=== PATIENT | male | born 1965 | race Caucasian/White ===

== ENCOUNTER 2017-08-10 22:19 | Inpatient (IN) | payer MEDICARE, MEDICAID ==
[~2017-08-10] VITALS: Ht 177.8 cm; Wt 76.7 kg
[~2017-08-10 22:19] MED LIST: ALBUTEROL2.5 MG/3 M INH; ATORVASTATIN CA20 MG ORAL; FISH OIL500 M2 PO; NICOTINE GUM4 MG PO; RISPERIDONE4 MG ORAL; SPIRIVA18 MCG INH; SYMBICORT 16010.2 G1 IH; TRAZODONE HCL150 MG ORAL
[2017-08-10 23:21] LABS: BASOPHILS % (AUTO) 0.5 % (0.0-2.0); EOSINOPHILS % (AUTO) 2.2 % (0.0-3.0); LYMPHOCYTES % (AUTO) 15.4 % (20.0-45.0); MEAN CORPUSCULAR HGB CONC 34.4 G/DL (32.0-36.0); MEAN CORPUSCULAR VOLUME 93 FL (80-99); PLATELET COUNT 184 K/UL (150-450); RED CELL DISTRIBUTION WIDTH 12.1 % (11.6-14.8); WHITE BLOOD COUNT 13.7 K/UL (4.8-10.8)
[2017-08-10 23:33] LABS: ANION GAP 11 mmol/L (5-15); CARBON DIOXIDE 25 MMOL/L (21-32); CHLORIDE 104 MMOL/L (98-107); CREATININE 1.2 MG/DL (0.55-1.30); GLOMERULAR FILTRATION RATE > 60 mL/min (>60); POTASSIUM 3.1 MMOL/L (3.5-5.1); SODIUM 140 MMOL/L (136-145)
[2017-08-10 23:50] LABS: CKMB 4.9 NG/ML (0.0-3.6)
[2017-08-11] VITALS (7 sets, daily range): BP systolic 110–138; BP diastolic 61–88
[2017-08-11] MEDS ORDERED: Miralax 17gm pkt ORAL PRN (00:15)
[2017-08-11] MEDS ORDERED: Morphine Sulfate 4mg/ml Inj IVP PRN (00:15)
[2017-08-11] MEDS ORDERED: TraZODone 100mg tab ORAL PRN (00:15)
[2017-08-11] MEDS ORDERED: Albuterol/Ipratropium 3ml neb HHN PRN (00:15)
--- NOTE | 2017-08-11 00:21 | Emergency Room Report ---
History of Present Illness General Chief Complaint: Seizure Source: Patient, EMS Present Illness HPI Patient presents from a boarding care facility Patient is a poor historian This does limit the history of present illness There is note on the patient's chart regarding previous tuberculosis however he denies this Patient was brought in for report of seizure activity However he also denies having seizure activity At this time denies any chest pain denies any shortness of breath however the patient was found to be tachypneic and appears clinically short of breath Allergies: Coded Allergies: No Known Allergies (Unverified , 12/28/14) Patient History Past Medical History: see triage record Pertinent Family History: none Reviewed Nursing Documentation: PMH: Agreed, PSxH: Agreed Nursing Documentation-PMH Hx COPD: Yes - EMPHYSEMA,HX OF TB History Of Psychiatric Problem: Yes Review of Systems All Other Systems: limited - Other than the ones mentioned in the history of present illness all others are reviewed however they do stay limited due to the patient's mental status Physical Exam Vital Signs Date Time Temp Pulse Resp B/P (MAP) Pulse Ox O2 Delivery O2 Flow Rate FiO2 08/10/17 22:16 97.2 104 18 157/90 98 Room Air Sp02 EP Interpretation: reviewed, normal General Appearance: mild distress - appear short of breath Head: normocephalic, atraumatic Eyes: bilateral eye PERRL, bilateral eye EOMI ENT: hearing grossly normal, normal pharynx, TMs + canals normal, uvula midline Neck: full range of motion, supple, no meningismus, no bony tend Respiratory: no respiratory distress, no retraction, no accessory muscle use, crackles - bilaterally Cardiovascular #1: normal peripheral pulses, regular rate, rhythm, no edema, no gallop, no JVD, no murmur Gastrointestinal: normal bowel sounds, non tender, soft, no mass, no organomegaly, non-distended, no guarding, no hernia, no pulsatile mass, no rebound Genitourinary: no CVA tenderness Musculoskeletal: normal inspection Neurologic: responsive, restaurant 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 manager 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-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 nml as tested, motor strength/tone normal, sensory intact Psychiatric: mood/affect normal Skin: normal color, no rash, warm/dry, palpation normal Lymphatic: normal inspection, no adenopathy Medical Decision Making Diagnostic Impression: Primary Impression: Pneumonia Additional Impression: Hypoxia ER Course Patient is a fairly complex patient with multiple differential to consideration including but not limited to cardiac cardiopulmonary and vascular emergencies Patient's CT head was negative for acute disease X-ray shows bilateral lower lobe increased markings concerning for infiltrate White blood for count was also elevated Patient's initial pulse ox was reading at 98% however On the continuous monitoring at bedside patient saturates at 92-91% on a regular basis and required oxygen Patient provided antibiotics and admitted for further care Labs Test 08/10/17 22:45 08/10/17 23:30 White Blood Count 13.7 K/UL (4.8-10.8) Red Blood Count 4.70 M/UL (4.70-6.10) Hemoglobin 15.0 G/DL (14.2-18.0) Hematocrit 43.7 % (42.0-52.0) Mean Corpuscular Volume 93 FL (80-99) Mean Corpuscular Hemoglobin 32.0 PG (27.0-31.0) Mean Corpuscular Hemoglobin Concent 34.4 G/DL (32.0-36.0) Red Cell Distribution Width 12.1 % (11.6-14.8) Platelet Count 184 K/UL (150-450) Mean Platelet Volume 8.0 FL (6.5-10.1) Neutrophils (%) (Auto) 77.0 % (45.0-75.0) Lymphocytes (%) (Auto) 15.4 % (20.0-45.0) Monocytes (%) (Auto) 5.0 % (1.0-10.0) Eosinophils (%) (Auto) 2.2 % (0.0-3.0) Basophils (%) (Auto) 0.5 % (0.0-2.0) Sodium Level 140 MMOL/L (136-145) Potassium Level 3.1 MMOL/L (3.5-5.1) Chloride Level 104 MMOL/L (98-107) Carbon Dioxide Level 25 MMOL/L (21-32) Anion Gap 11 mmol/L (5-15) Blood Urea Nitrogen 15 mg/dL (7-18) Creatinine 1.2 MG/DL (0.55-1.30) Estimat Glomerular Filtration Rate > 60 mL/min (>60) Glucose Level 112 MG/DL (74-106) Calcium Level 9.0 MG/DL (8.5-10.1) Total Creatine Kinase 177 U/L (26-308) Creatine Kinase MB 4.9 NG/ML (0.0-3.6) Creatine Kinase MB Relative Index 2.7 Troponin I 0.000 ng/mL (0.000-0.056) Pro-B-Type Natriuretic Peptide 136 pg/mL (0-125) Lipase 136 U/L (73-393) Urine Opiates Screen Negative (NEGATIVE) Urine Barbiturates Screen Negative (NEGATIVE) Phencyclidine (PCP) Screen Negative (NEGATIVE) Urine Amphetamines Screen Negative (NEGATIVE) Urine Benzodiazepines Screen Negative (NEGATIVE) Urine Cocaine Screen Negative (NEGATIVE) Urine Marijuana (THC) Screen Negative (NEGATIVE) Lactic Acid Level 1.90 mmol/L (0.66-2.22) Rhythm Strip Diag. Results EP Interpretation: yes Rate: 78 Rhythm: NSR, no PVC's, no ectopy Chest X-Ray Diagnostic Results Chest X-Ray Diagnostic Results : Chest X-Ray Ordered: Yes # of Views/Limited/Complete: 1 View Indication: Shortness of Breath EP Interpretation: Yes Interpretation: no effusion, no pneumothorax, other - Bilateral lower lobe atelectasis/infiltrate Impression: Other - Bilateral lower lobe infiltrate Electronically Signed by: Trent Montez, DO CT/MRI/US Diagnostic Results CT/MRI/US Diagnostic Results : Impression CT head no acute disease Last Vital Signs Date Time Temp Pulse Resp B/P (MAP) Pulse Ox O2 Delivery O2 Flow Rate FiO2 08/10/17 22:56 104 18 Room Air 08/10/17 22:16 97.2 157/90 98 Status: improved Disposition: ADMITTED INPATIENT Condition: Serious Referrals: NOT CHOSEN PATRIA/,REFERRING (PCP) TRENT MONTEZ D.O. Aug 11, 2017 00:21
[2017-08-11] MEDS ORDERED: TRAZODONE HCL100 MG ORAL (01:17)
[2017-08-11] MEDS ORDERED: VIAGRA50 MG ORAL (01:17)
[2017-08-11] MEDS ORDERED: GUAIFENESIN PO (01:17)
[2017-08-11] MEDS ORDERED: RISPERIDONE4 MG ORAL (01:17)
[2017-08-11] MEDS ORDERED: CORLANOR5 MG PO (01:17)
[2017-08-11] MEDS ORDERED: BUPROPION HCL150 M3 ORAL (01:22)
[2017-08-11] MEDS ORDERED: SPIRIVA18 MCG INH (01:23)
[2017-08-11] MEDS ORDERED: Vancomycin 1.5 GM/D5W 250ML IVPB SCH (05:00)
[2017-08-11] MEDS ORDERED: VANCOMYCIN IVPB SCH (06:00)
[2017-08-11] MEDS ORDERED: [UNRECOGNIZED DRUG - OTHER] IVPB SCH (06:00)
[2017-08-11] MEDS ORDERED: Cefepime 2gm in D5W 55ml IVPB SCH (09:00)
[2017-08-11] MEDS ORDERED: Cefepime HCl 2 GM in D5W 110 ML IV SCH (09:00)
[2017-08-11] MEDS: Heparin 5000 units/ml inj SUBQ SCH ×2 (09:25→22:12)
--- NOTE | 2017-08-11 10:54 | Consultation ---
History of Present Illness General Date patient seen: Aug 11, 2017 Time patient seen: 11:05 Chief Complaint: Seizure Present Illness HPI 52 y/o M with hx of emphysema, ?hx of prior TB (per chart, patient denies), [facility]ac disorder[facility]11 because of seizure activity. Poor historian Denies CP, SOB. In ED found to be tachypneic and SOB. afebrile. mild leukocytosis to 13. CXR and Head CT pending. Started on IV Vanco and Cefepime Patient doesn recall event but refers days prior was doing fine. Stacy f/c, cough, URI symptoms, urinary symptoms, abd pain, n/v/d, SIMMS, visual changes, numbness/weakness, rash. Allergies: Coded Allergies: No Known Allergies (Unverified , 12/28/14) Medication History Scheduled Atorvastatin Calcium* (Atorvastatin Calcium*), 20 MG ORAL BEDTIME, (Reported) Budesonide/Formoterol Fumarate (Symbicort 160-4.5 Mcg Inhaler), 2 PUFF IH BID, ( Reported) Bupropion Hcl* (Bupropion Hcl Sr*), 150 MG ORAL EVERY 12 HOURS, (Reported) Ivabradine HCl (Corlanor), 5 MG PO DAILY, (Reported) [place]-3 Fatty Acids (Fish Oil), 1,000 MG PO BID, (Reported) Risperidone (Risperidone), 8 MG ORAL QHS, (Reported) Risperidone (Risperidone), 4 MG ORAL BEDTIME, (Reported) Sildenafil Citrate (Viagra), 50 MG ORAL DAILY, (Reported) Tiotropium [place]* (Spiriva*), 1 PUFF INH DAILY, (Reported) Tiotropium [place]* (Spiriva*), 2 PUFF INH DAILY, (Reported) Trazodone Hcl* (Desyrel*), 100 MG ORAL BEDTIME, (Reported) [Guaifenesin], 400 MG PO THREE TIMES A DAY, (Reported) Scheduled PRN Albuterol Sulfate* (Albuterol Sulfate Hhn*), 90 MCG INH Q4H PRN for Shortness of Breath, (Reported) Nicotine Polacrilex (Nicotine Gum), 4 MG PO Q4HR PRN for Per rx protocol, ( Reported) Trazodone* (Trazodone*), 50 MG ORAL BEDTIME PRN for i, (Reported) Patient History Healthcare decision maker Resuscitation status Full Code Advanced Directive on File Patient History Narrative Pmhx as above: SHx lives in boarding care facility Fhx non contributory Review of Systems All Other Systems: negative except mentioned in HPI Physical Exam Physical Exam Narrative General Appearance: mild distress - appear short of breath HEENT: normocephalic, atraumatic, bilateral eye PERRL, bilateral eye EOMI Neck: full range of motion, supple, no meningismus, no bony tend Respiratory: no respiratory distress, no retraction, no accessory muscle use, crackles - bilaterally Cardiovascular : normal peripheral pulses, regular rate, rhythm, no edema, no gallop, no JVD, no murmur Gastrointestinal: normal bowel sounds, non tender, soft, no mass, no organomegaly, non-distended, no guarding, no hernia, no pulsatile mass, no rebound Genitourinary: no CVA tenderness Musculoskeletal: normal inspection Neurologic: responsive, technology intern III-XII nml as tested, motor strength/tone normal, sensory intact Psychiatric: mood/affect normal Skin: normal color, no rash, warm/dry, palpation normal Last 24 Hour Vital Signs Date Time Temp Pulse Resp B/P (MAP) Pulse Ox O2 Delivery O2 Flow Rate FiO2 08/11/17 08:17 98.1 86 20 136/79 93 08/11/17 08:15 78 18 89 Room Air 2.0 28 08/11/17 08:00 79 08/11/17 07:20 21 08/11/17 07:12 81 18 Room Air 08/11/17 07:11 81 18 87 Room Air 2.0 28 08/11/17 04:00 97.7 75 20 133/83 93 Room Air 08/11/17 04:00 71 08/11/17 03:00 97.7 71 20 123/73 97 Room Air 21 08/11/17 02:07 137/88 08/11/17 01:10 97.2 74 18 138/88 99 Room Air 08/10/17 22:56 104 18 Room Air 08/10/17 22:16 97.2 104 18 157/90 98 Room Air Intake and Output 08/11/17 08/12/17 19:00 07:00 Intake Total 1035 ml Balance 1035 ml Intake Oral 480 ml IV Total 555 ml Laboratory Tests Test 08/10/17 22:45 08/10/17 23:30 White Blood Count 13.7 K/UL (4.8-10.8) H Red Blood Count 4.70 M/UL (4.70-6.10) Hemoglobin 15.0 G/DL (14.2-18.0) Hematocrit 43.7 % (42.0-52.0) Mean Corpuscular Volume 93 FL (80-99) Mean Corpuscular Hemoglobin 32.0 PG (27.0-31.0) H Mean Corpuscular Hemoglobin Concent 34.4 G/DL (32.0-36.0) Red Cell Distribution Width 12.1 % (11.6-14.8) Platelet Count 184 K/UL (150-450) Mean Platelet Volume 8.0 FL (6.5-10.1) Neutrophils (%) (Auto) 77.0 % (45.0-75.0) H Lymphocytes (%) (Auto) 15.4 % (20.0-45.0) L Monocytes (%) (Auto) 5.0 % (1.0-10.0) Eosinophils (%) (Auto) 2.2 % (0.0-3.0) Basophils (%) (Auto) 0.5 % (0.0-2.0) Sodium Level 140 MMOL/L (136-145) Potassium Level 3.1 MMOL/L (3.5-5.1) L Chloride Level 104 MMOL/L (98-107) Carbon Dioxide Level 25 MMOL/L (21-32) Anion Gap 11 mmol/L (5-15) Blood Urea Nitrogen 15 mg/dL (7-18) Creatinine 1.2 MG/DL (0.55-1.30) Estimat Glomerular Filtration Rate > 60 mL/min (>60) Glucose Level 112 MG/DL (74-106) H Calcium Level 9.0 MG/DL (8.5-10.1) Total Creatine Kinase 177 U/L (26-308) Creatine Kinase MB 4.9 NG/ML (0.0-3.6) H Creatine Kinase MB Relative Index 2.7 Troponin I 0.000 ng/mL (0.000-0.056) Pro-B-Type Natriuretic Peptide 136 pg/mL (0-125) H Lipase 136 U/L (73-393) Urine Opiates Screen Negative (NEGATIVE) Urine Barbiturates Screen Negative (NEGATIVE) Phencyclidine (PCP) Screen Negative (NEGATIVE) Urine Amphetamines Screen Negative (NEGATIVE) Urine Benzodiazepines Screen Negative (NEGATIVE) Urine Cocaine Screen Negative (NEGATIVE) Urine Marijuana (THC) Screen Negative (NEGATIVE) Lactic Acid Level 1.90 mmol/L (0.66-2.22) Height (Feet): 5 Height (Inches): 10.00 Weight (Pounds): 169 Medications Current Medications Medications (Trade) Dose Ordered Sig/Otilio Route PRN Reason Start Time Stop Time Status Last Admin Dose Admin Acetaminophen (Tylenol) 650 mg Q4H PRN ORAL FEVER 08/11/17 00:15 09/10/17 00:14 Albuterol/ Ipratropium (Albuterol/ Ipratropium) 3 ml Q4H PRN HHN Shortness of Breath 08/11/17 00:15 08/16/17 00:14 08/11/17 07:11 Cefepime HCl 2 gm/ Dextrose 55 ml @ 110 mls/hr EVERY 12 HOURS IVPB 08/11/17 09:00 08/18/17 08:59 08/11/17 09:24 Dextrose (Dextrose 50%) STAT PRN IV Hypoglycemia 08/11/17 00:15 09/10/17 00:14 Heparin Sodium (Porcine) (Heparin 5000 units/ml) 5,000 units EVERY 12 HOURS SUBQ 08/11/17 09:00 09/10/17 08:59 08/11/17 09:25 Morphine Sulfate (Morphine Sulfate) 2 mg Q4H PRN IVP Severe Pain (Pain Scale 7-10) 08/11/17 00:15 08/18/17 00:14 Ondansetron HCl (Zofran) 4 mg Q6H PRN IVP Nausea & Vomiting 08/11/17 00:15 09/10/17 00:14 Polyethylene Glycol (Miralax) 17 gm DAILYPRN PRN ORAL Constipation 08/11/17 00:15 09/10/17 00:14 Risperidone (RisperDAL) 2 mg BEDTIME ORAL 08/11/17 21:00 09/10/17 20:59 Trazodone HCl (Desyrel) 50 mg BEDTIME PRN ORAL INSOMNIA 08/11/17 00:15 09/10/17 00:14 Vancomycin HCl (Vanco rx to dose) 1 ea DAILY PRN MISC . 08/11/17 06:30 09/10/17 06:29 Vancomycin HCl/ Dextrose 500 ml @ 250 mls/hr Q12H IVPB 08/11/17 06:00 08/16/17 04:59 08/11/17 06:30 Assessment/Plan Assessment/Plan Abx: IV Vanco 08/11- Cefepime 08/11- Levaquin x1 08/11 Assesment: Seziure activity- ?etiology- afebrile, mental status back to normal, no SIMMS- low suspicion for an underlying infectious process -head CT p (per ED report no acute findings) Leukocytosis, mild- suspect reactive. No signs or symptoms of infection -afebrile -CXR p (per ED report Bilateral lower lobe atelectasis/infiltrate) emphysema ?hx of prior TB (per chart, patient denies) psychiatric disorder [facility] resident Plan: -D/C IV Vancomycin and Cefepime and monitor off abx -f/u Head CT, CXR -Consider Neuro eval -check HIV ag/ab, RPR -f/u cx -Monitor CBC/BMP ,temperatures Thank you for this consultation. Will continue to follow along with you. Discussed with MARIELLE. Avis Holguin M.D. Aug 11, 2017 10:54
--- NOTE | 2017-08-11 12:07 | History and Physical ---
History of Present Illness General Date patient seen: Aug 11, 2017 Reason for Hospitalization: Seizure Present Illness HPI 52 year old with hx of seizures, psychiatric disorder, depression, brought in by paramedics for ALOC, possibly seizures. Pt doesn't remember anything and is a poor historian as well. He looks comfortable and stating that he is ready to go home. Allergies: Coded Allergies: No Known Allergies (Unverified , 12/28/14) Medication History Scheduled Atorvastatin Calcium* (Atorvastatin Calcium*), 20 MG ORAL BEDTIME, (Reported) Budesonide/Formoterol Fumarate (Symbicort 160-4.5 Mcg Inhaler), 2 PUFF IH BID, ( Reported) Bupropion Hcl* (Bupropion Hcl Sr*), 150 MG ORAL EVERY 12 HOURS, (Reported) Ivabradine HCl (Corlanor), 5 MG PO DAILY, (Reported) [place]-3 Fatty Acids (Fish Oil), 1,000 MG PO BID, (Reported) Risperidone (Risperidone), 8 MG ORAL QHS, (Reported) Risperidone (Risperidone), 4 MG ORAL BEDTIME, (Reported) Sildenafil Citrate (Viagra), 50 MG ORAL DAILY, (Reported) Tiotropium [place]* (Spiriva*), 1 PUFF INH DAILY, (Reported) Tiotropium [place]* (Spiriva*), 2 PUFF INH DAILY, (Reported) Trazodone Hcl* (Desyrel*), 100 MG ORAL BEDTIME, (Reported) [Guaifenesin], 400 MG PO THREE TIMES A DAY, (Reported) Scheduled PRN Albuterol Sulfate* (Albuterol Sulfate Hhn*), 90 MCG INH Q4H PRN for Shortness of Breath, (Reported) Nicotine Polacrilex (Nicotine Gum), 4 MG PO Q4HR PRN for Per rx protocol, ( Reported) Trazodone* (Trazodone*), 50 MG ORAL BEDTIME PRN for i, (Reported) Patient History Healthcare decision maker Resuscitation status Full Code Advanced Directive on File Past Medical/Surgical History Past Medical/Surgical History: (1) Seizure disorder (2) Psychosis (3) Depression Review of Systems Constitutional: Reports: no symptoms Eye: Reports: no symptoms Respiratory: Reports: no symptoms Physical Exam General Appearance: WD/WN, lethargic Lines, tubes and drains: peripheral, central line HEENT: normocephalic, atraumatic Neck: non-tender, normal alignment Respiratory/Chest: chest wall non-tender, lungs clear Breasts: no masses Cardiovascular/Chest: normal peripheral pulses Abdomen: normal bowel sounds Genitourinary/Rectal: normal genital exam Last 24 Hour Vital Signs Date Time Temp Pulse Resp B/P (MAP) Pulse Ox O2 Delivery O2 Flow Rate FiO2 08/11/17 11:24 97.9 78 20 110/61 96 08/11/17 08:17 98.1 86 20 136/79 93 08/11/17 08:15 78 18 89 Room Air 2.0 28 08/11/17 08:00 79 08/11/17 07:20 21 08/11/17 07:12 81 18 Room Air 08/11/17 07:11 81 18 87 Room Air 2.0 28 08/11/17 04:00 97.7 75 20 133/83 93 Room Air 08/11/17 04:00 71 08/11/17 03:00 97.7 71 20 123/73 97 Room Air 21 08/11/17 02:07 137/88 08/11/17 01:10 97.2 74 18 138/88 99 Room Air 08/10/17 22:56 104 18 Room Air 08/10/17 22:16 97.2 104 18 157/90 98 Room Air Intake and Output 08/11/17 08/12/17 19:00 07:00 Intake Total 1035 ml Balance 1035 ml Intake Oral 480 ml IV Total 555 ml # Voids 2 Laboratory Tests Test 08/10/17 22:45 08/10/17 23:30 White Blood Count 13.7 K/UL (4.8-10.8) H Red Blood Count 4.70 M/UL (4.70-6.10) Hemoglobin 15.0 G/DL (14.2-18.0) Hematocrit 43.7 % (42.0-52.0) Mean Corpuscular Volume 93 FL (80-99) Mean Corpuscular Hemoglobin 32.0 PG (27.0-31.0) H Mean Corpuscular Hemoglobin Concent 34.4 G/DL (32.0-36.0) Red Cell Distribution Width 12.1 % (11.6-14.8) Platelet Count 184 K/UL (150-450) Mean Platelet Volume 8.0 FL (6.5-10.1) Neutrophils (%) (Auto) 77.0 % (45.0-75.0) H Lymphocytes (%) (Auto) 15.4 % (20.0-45.0) L Monocytes (%) (Auto) 5.0 % (1.0-10.0) Eosinophils (%) (Auto) 2.2 % (0.0-3.0) Basophils (%) (Auto) 0.5 % (0.0-2.0) Sodium Level 140 MMOL/L (136-145) Potassium Level 3.1 MMOL/L (3.5-5.1) L Chloride Level 104 MMOL/L (98-107) Carbon Dioxide Level 25 MMOL/L (21-32) Anion Gap 11 mmol/L (5-15) Blood Urea Nitrogen 15 mg/dL (7-18) Creatinine 1.2 MG/DL (0.55-1.30) Estimat Glomerular Filtration Rate > 60 mL/min (>60) Glucose Level 112 MG/DL (74-106) H Calcium Level 9.0 MG/DL (8.5-10.1) Total Creatine Kinase 177 U/L (26-308) Creatine Kinase MB 4.9 NG/ML (0.0-3.6) H Creatine Kinase MB Relative Index 2.7 Troponin I 0.000 ng/mL (0.000-0.056) Pro-B-Type Natriuretic Peptide 136 pg/mL (0-125) H Lipase 136 U/L (73-393) Urine Opiates Screen Negative (NEGATIVE) Urine Barbiturates Screen Negative (NEGATIVE) Phencyclidine (PCP) Screen Negative (NEGATIVE) Urine Amphetamines Screen Negative (NEGATIVE) Urine Benzodiazepines Screen Negative (NEGATIVE) Urine Cocaine Screen Negative (NEGATIVE) Urine Marijuana (THC) Screen Negative (NEGATIVE) Lactic Acid Level 1.90 mmol/L (0.66-2.22) Height (Feet): 5 Height (Inches): 10.00 Weight (Pounds): 169 Medications Current Medications Medications (Trade) Dose Ordered Sig/Otilio Route PRN Reason Start Time Stop Time Status Last Admin Dose Admin Acetaminophen (Tylenol) 650 mg Q4H PRN ORAL FEVER 08/11/17 00:15 09/10/17 00:14 Albuterol/ Ipratropium (Albuterol/ Ipratropium) 3 ml Q4H PRN HHN Shortness of Breath 08/11/17 00:15 08/16/17 00:14 08/11/17 07:11 Cefepime HCl 2 gm/ Dextrose 55 ml @ 110 mls/hr EVERY 12 HOURS IVPB 08/11/17 09:00 08/18/17 08:59 08/11/17 09:24 Dextrose (Dextrose 50%) STAT PRN IV Hypoglycemia 08/11/17 00:15 09/10/17 00:14 Heparin Sodium (Porcine) (Heparin 5000 units/ml) 5,000 units EVERY 12 HOURS SUBQ 08/11/17 09:00 09/10/17 08:59 08/11/17 09:25 Morphine Sulfate (Morphine Sulfate) 2 mg Q4H PRN IVP Severe Pain (Pain Scale 7-10) 08/11/17 00:15 08/18/17 00:14 Ondansetron HCl (Zofran) 4 mg Q6H PRN IVP Nausea & Vomiting 08/11/17 00:15 09/10/17 00:14 Polyethylene Glycol (Miralax) 17 gm DAILYPRN PRN ORAL Constipation 08/11/17 00:15 09/10/17 00:14 Risperidone (RisperDAL) 2 mg BEDTIME ORAL 08/11/17 21:00 09/10/17 20:59 Trazodone HCl (Desyrel) 50 mg BEDTIME PRN ORAL INSOMNIA 08/11/17 00:15 09/10/17 00:14 Vancomycin HCl (Vanco rx to dose) 1 ea DAILY PRN MISC . 08/11/17 06:30 09/10/17 06:29 Vancomycin HCl/ Dextrose 500 ml @ 250 mls/hr Q12H IVPB 08/11/17 06:00 08/16/17 04:59 08/11/17 06:30 Assessment/Plan Problem List: (1) Acute encephalopathy ICD Codes: G93.40 - Encephalopathy, unspecified SNOMED: 1480925 (2) Seizure disorder ICD Codes: G40.909 - Epilepsy, unspecified, not intractable, without status epilepticus SNOMED: 518000516 (3) Leukocytosis ICD Codes: D72.829 - Elevated white blood cell count, unspecified SNOMED: 709652004, 620424961 (4) Psychosis ICD Codes: F29 - Unspecified psychosis not due to a substance or known physiological condition SNOMED: 09014070 (5) Depression ICD Codes: F32.9 - Major depressive disorder, single episode, unspecified SNOMED: 05240397 Assessment/Plan telemetry monitoring echo neuro evaluation check wbc ID evaluation for leukocytosis. CARRIE KAN Aug 11, 2017 12:07
--- NOTE | 2017-08-11 14:16 | Neurology Progress Note ---
Objective Physical Exam Last Vital Signs Date Time Temp Pulse Resp B/P (MAP) Pulse Ox O2 Delivery O2 Flow Rate FiO2 08/11/17 12:00 75 08/11/17 11:24 97.9 20 110/61 96 08/11/17 08:15 Room Air 2.0 28 Laboratory Tests Test 08/10/17 22:45 08/10/17 23:30 White Blood Count 13.7 K/UL (4.8-10.8) H Red Blood Count 4.70 M/UL (4.70-6.10) Hemoglobin 15.0 G/DL (14.2-18.0) Hematocrit 43.7 % (42.0-52.0) Mean Corpuscular Volume 93 FL (80-99) Mean Corpuscular Hemoglobin 32.0 PG (27.0-31.0) H Mean Corpuscular Hemoglobin Concent 34.4 G/DL (32.0-36.0) Red Cell Distribution Width 12.1 % (11.6-14.8) Platelet Count 184 K/UL (150-450) Mean Platelet Volume 8.0 FL (6.5-10.1) Neutrophils (%) (Auto) 77.0 % (45.0-75.0) H Lymphocytes (%) (Auto) 15.4 % (20.0-45.0) L Monocytes (%) (Auto) 5.0 % (1.0-10.0) Eosinophils (%) (Auto) 2.2 % (0.0-3.0) Basophils (%) (Auto) 0.5 % (0.0-2.0) Sodium Level 140 MMOL/L (136-145) Potassium Level 3.1 MMOL/L (3.5-5.1) L Chloride Level 104 MMOL/L (98-107) Carbon Dioxide Level 25 MMOL/L (21-32) Anion Gap 11 mmol/L (5-15) Blood Urea Nitrogen 15 mg/dL (7-18) Creatinine 1.2 MG/DL (0.55-1.30) Estimat Glomerular Filtration Rate > 60 mL/min (>60) Glucose Level 112 MG/DL (74-106) H Calcium Level 9.0 MG/DL (8.5-10.1) Total Creatine Kinase 177 U/L (26-308) Creatine Kinase MB 4.9 NG/ML (0.0-3.6) H Creatine Kinase MB Relative Index 2.7 Troponin I 0.000 ng/mL (0.000-0.056) Pro-B-Type Natriuretic Peptide 136 pg/mL (0-125) H Lipase 136 U/L (73-393) Urine Opiates Screen Negative (NEGATIVE) Urine Barbiturates Screen Negative (NEGATIVE) Phencyclidine (PCP) Screen Negative (NEGATIVE) Urine Amphetamines Screen Negative (NEGATIVE) Urine Benzodiazepines Screen Negative (NEGATIVE) Urine Cocaine Screen Negative (NEGATIVE) Urine Marijuana (THC) Screen Negative (NEGATIVE) Lactic Acid Level 1.90 mmol/L (0.66-2.22) Impression/Recommendations Recommendations # [id number] OLLIE AMAYA Aug 11, 2017 14:16
[2017-08-11] MEDS ORDERED: D5W 275ml ONE (15:34)
[2017-08-11] MEDS ORDERED: Tubing IV Secondary IV ONE (15:34)
--- NOTE | 2017-08-11 17:16 | Consultation ---
DATE OF CONSULTATION: 08/11/2017 NEUROLOGICAL CONSULTATION CONSULTING PHYSICIAN: Curtis Troncoso M.D. REQUESTING PHYSICIAN: Federico Zamorano M.D. HISTORY OF PRESENT ILLNESS: The patient is a 52-year-old gentleman resident of [facility] now seen in neurological consultation after he had what seems witnessed "seizure event." The patient informs me that he never had seizures in the past and denies having blackouts. He remember yesterday getting his dress warm, went to the bed to sleep, and then he was taken to this hospital. He suspects that if seizure occurred while he was in bed. On arrival to this hospital, he was tachypneic with shortness of breath. His blood pressure was 157/90, temperature 97.2, and heart rate of 102. He described as having mild distress. His initial workup included CT scan of the brain, which reported as negative. He had a chest x-ray revealed bilateral lower lobe infiltrates and EKG with normal sinus rhythm. No PVCs. No ectopies noted. Laboratory studies included a CBC study with WBC of 13.7. Chemistry panel with blood sugar of 112. CK-MB of 4.9 and BNP of 136 otherwise normal study. Toxicology panel was negative. Since admission till present, there was no further paroxysmal event. According to the patient as well as from medical records known that the patient has chronic psychiatric disorder but also with a history of COPD and questionable history of previous lung TB. MEDICATIONS: The patient's treatment included Symbicort, atorvastatin, Wellbutrin 150 mg b.i.d., , Fish oil, Risperdal, Viagra, Spiriva, Desyrel, as well as albuterol inhaler, nicotine gum, and trazodone. FAMILY HISTORY: Unavailable. SOCIAL HISTORY: Resident of a [facility]. 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 He added doubt that he has million dollars given to him by famous actor, now it is "accumulating interest in the bank." REVIEW OF SYMPTOMS: The patient indicated he is feeling fairly well. He has no complaints except slight cough. No chest pain. No palpitations. No headache. No dizziness. No unilateral weakness, numbness, or tingling. No abdominal pain or discomfort. No urine or bowel incontinence. PHYSICAL EXAMINATION: GENERAL: A well-developed, well-nourished man, not in acute distress, lying comfortably in bed. There is sometimes dry cough. VITAL SIGNS: Now stable. Blood pressure 110/61 and temperature is 97.9. HEENT: Head is normocephalic. No evidence of trauma. Eyes, ears, and throat are clear. NECK: Supple. No meningeal signs. MUSCULOSKELETAL EXAMINATION: Unremarkable. There is no deformities. Peripheral pulses 1+ and symmetric. MENTAL STATUS: He is alert and oriented x3. Speech is fluent with no evidence of aphasia or apraxia. Emotionally inappropriate and presents with some paranoid ideation but coherent. Follows command. CRANIAL NERVE II: Pupils both responding to light and accommodation. Extraocular movements intact. No nystagmus. CRANIAL NERVE V: Normal corneal responses. CRANIAL NERVE VII: No facial asymmetry. CRANIAL NERVE VIII: Normal hearing. CRANIAL NERVES IX THROUGH XII: Within normal limits. MOTOR EXAMINATION: Normal muscle tone. Strength 5/5 in all extremities. No involuntary movement. Deep tendon reflexes 1+ symmetric with downgoing toes on both sides. SENSORY EXAMINATION: Normal to pinprick and light touch. Gait reported normal. IMPRESSION: 1. History of single episode probably symptomatic due to underlying infection. 2. Pneumonia. 3. Rule out paranoid schizophrenia. 4. History of chronic obstructive pulmonary disease. RECOMMENDATIONS: 1. Check EEG. 2. Review CT of the brain. 3. Observe for any paroxysmal events. 4. Continue with IV fluids and antibiotics to cover underlying infection. 5. Psychiatry evaluation. Thank you for allowing me to see this interesting patient in neurological consultation. Curtis Troncoso M.D. DR: SANTOS JOB#: [id number] CC:
[2017-08-11 17:35] LABS: APPEARANCE,URINE CLEAR; KETONES,URINE NEGATIVE (NEGATIVE); LEUKOCYTE ESTERASE ,URINE NEGATIVE (NEGATIVE); NITRITE,URINE NEGATIVE (NEGATIVE); PH,URINE 6 (4.5-8.0); PROTEIN,URINE NEGATIVE (NEGATIVE); UROBILINOGEN,URINE NORMAL MG/DL (0.0-1.0)
[2017-08-11 17:46] LABS: RBC,URINE 0-2 /HPF (0 - 0); WBC,URINE 0-2 /HPF (0 - 0)
[2017-08-11] MEDS ORDERED: Vancomycin 1 GM in D5W 275 ML IV SCH (23:00)
[2017-08-12] VITALS (8 sets, daily range): BP systolic 114–139; BP diastolic 71–96
[2017-08-12 08:10] LABS: BASOPHILS % (AUTO) 0.8 % (0.0-2.0); EOSINOPHILS % (AUTO) 1.3 % (0.0-3.0); LYMPHOCYTES % (AUTO) 24.6 % (20.0-45.0); MEAN CORPUSCULAR HEMOGLOBIN 29.4 PG (27.0-31.0); MEAN CORPUSCULAR HGB CONC 31.8 G/DL (32.0-36.0); MEAN CORPUSCULAR VOLUME 93 FL (80-99); MEAN PLATELET VOLUME 6.7 FL (6.5-10.1); NEUTROPHILS % (AUTO) 67.2 % (45.0-75.0); PLATELET COUNT 208 K/UL (150-450); RED BLOOD COUNT 5.45 M/UL (4.70-6.10); RED CELL DISTRIBUTION WIDTH 12.1 % (11.6-14.8); WHITE BLOOD COUNT 9.3 K/UL (4.8-10.8)
[2017-08-12] MEDS: Heparin 5000 units/ml inj SUBQ SCH ×2 (08:14→21:55)
[2017-08-12 08:59] LABS: ANION GAP 11 mmol/L (5-15); CALCIUM 9.4 MG/DL (8.5-10.1); CARBON DIOXIDE 23 MMOL/L (21-32); CHLORIDE 105 MMOL/L (98-107); GLOMERULAR FILTRATION RATE > 60 mL/min (>60); PHOSPHORUS 2.7 MG/DL (2.5-4.9); POTASSIUM 3.6 MMOL/L (3.5-5.1); SODIUM 139 MMOL/L (136-145)
--- NOTE | 2017-08-12 11:04 | Infectious Diseases Prog Note ---
Assessment/Plan Assessment/Plan Abx: IV Vanco 08/11 Cefepime 08/11 Levaquin x1 08/11 Assesment: Seziure activity- ?etiology- afebrile, mental status back to normal, no SIMMS- low suspicion for an underlying infectious process -head CT :no acute findings -Rapid HIV screen neg Leukocytosis, mild- suspect reactive;now resolved. No signs or symptoms of infection -afebrile -CXR p (per ED report Bilateral lower lobe atelectasis/infiltrate) -Bcx NTD new onset cough (per patient)- r/o PNA, currently afebrile, non productive emphysema ?hx of prior TB (per chart, patient denies) psychiatric disorder [facility] resident Plan: -Continue to monitor off abx and await CT findings- if concern for PNA can start PO Cefdinir 300mg bid for 5-7 days -08/11 SP IV Vanco, Cefepime, levaquin #1 -f/u CXR -Neuro f/u -f/u RPR -f/u cx -Monitor CBC/BMP ,temperatures Thank you for this consultation. Will continue to follow along with you. Discussed with RN. Subjective Allergies: Coded Allergies: No Known Allergies (Unverified , 12/28/14) Subjective afebrile leukocytosis resolved BCx NTD patient reported cough that started today Objective Vital Signs Last 24 Hour Vital Signs Date Time Temp Pulse Resp B/P (MAP) Pulse Ox O2 Delivery O2 Flow Rate FiO2 08/12/17 08:46 97.9 88 18 134/96 94 08/12/17 08:00 84 08/12/17 04:00 97.5 74 20 114/72 94 Room Air 08/12/17 04:00 68 08/12/17 00:00 97.9 65 20 117/71 93 Room Air 08/12/17 00:00 61 08/11/17 20:00 98.1 83 20 130/78 94 Room Air 08/11/17 20:00 68 08/11/17 16:00 68 08/11/17 15:44 98.3 72 20 130/79 96 08/11/17 12:00 75 08/11/17 11:24 97.9 78 20 110/61 96 Height (Feet): 5 Height (Inches): 10.00 Weight (Pounds): 169 Objective General Appearance: mild distress - appear short of breath HEENT: normocephalic, atraumatic, bilateral eye PERRL, bilateral eye EOMI Neck: full range of motion, supple, no meningismus, no bony tend Respiratory: no respiratory distress, no retraction, no accessory muscle use, crackles - bilaterally Cardiovascular : normal peripheral pulses, regular rate, rhythm, no edema, no gallop, no JVD, no murmur Gastrointestinal: normal bowel sounds, non tender, soft, no mass, no organomegaly, non-distended, no guarding, no hernia, no pulsatile mass, no rebound Genitourinary: no CVA tenderness Musculoskeletal: normal inspection Neurologic: responsive, 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 Complete Laboratory Tests Test 08/11/17 16:55 08/12/17 07:30 Urine Color Pale yellow Urine Appearance Clear Urine pH 6 (4.5-8.0) Urine Specific [place] 1.010 (1.005-1.035) Urine Protein Negative (NEGATIVE) Urine Glucose (UA) Negative (NEGATIVE) Urine Ketones Negative (NEGATIVE) Urine Occult Blood 2+ (NEGATIVE) H Urine Nitrite Negative (NEGATIVE) Urine Bilirubin Negative (NEGATIVE) Urine Urobilinogen Normal MG/DL (0.0-1.0) Urine Leukocyte Esterase Negative (NEGATIVE) Urine RBC 0-2 /HPF (0 - 0) H Urine WBC 0-2 /HPF (0 - 0) Urine Squamous Epithelial Cells None /LPF (NONE/OCC) Urine Bacteria None /HPF (NONE) White Blood Count 9.3 K/UL (4.8-10.8) Red Blood Count 5.45 M/UL (4.70-6.10) Hemoglobin 16.1 G/DL (14.2-18.0) Hematocrit 50.5 % (42.0-52.0) Mean Corpuscular Volume 93 FL (80-99) Mean Corpuscular Hemoglobin 29.4 PG (27.0-31.0) Mean Corpuscular Hemoglobin Concent 31.8 G/DL (32.0-36.0) L Red Cell Distribution Width 12.1 % (11.6-14.8) Platelet Count 208 K/UL (150-450) Mean Platelet Volume 6.7 FL (6.5-10.1) Neutrophils (%) (Auto) 67.2 % (45.0-75.0) Lymphocytes (%) (Auto) 24.6 % (20.0-45.0) Monocytes (%) (Auto) 6.0 % (1.0-10.0) Eosinophils (%) (Auto) 1.3 % (0.0-3.0) Basophils (%) (Auto) 0.8 % (0.0-2.0) Sodium Level 139 MMOL/L (136-145) Potassium Level 3.6 MMOL/L (3.5-5.1) Chloride Level 105 MMOL/L (98-107) Carbon Dioxide Level 23 MMOL/L (21-32) Anion Gap 11 mmol/L (5-15) Blood Urea Nitrogen 11 mg/dL (7-18) Creatinine 1.0 MG/DL (0.55-1.30) Estimat Glomerular Filtration Rate > 60 mL/min (>60) Glucose Level 124 MG/DL (74-106) H Calcium Level 9.4 MG/DL (8.5-10.1) Phosphorus Level 2.7 MG/DL (2.5-4.9) Albumin 3.6 G/DL (3.4-5.0) Rapid Plasma Reagin Pending HIV (1&2) Antibody Rapid Negative (NEGATIVE) Current Medications Medications (Trade) Dose Ordered Sig/Otilio Route PRN Reason Start Time Stop Time Status Last Admin Dose Admin Acetaminophen (Tylenol) 650 mg Q4H PRN ORAL FEVER 08/11/17 00:15 09/10/17 00:14 Albuterol/ Ipratropium (Albuterol/ Ipratropium) 3 ml Q4H PRN HHN Shortness of Breath 08/11/17 00:15 08/16/17 00:14 08/11/17 07:11 Dextrose (Dextrose 50%) STAT PRN IV Hypoglycemia 08/11/17 00:15 09/10/17 00:14 Heparin Sodium (Porcine) (Heparin 5000 units/ml) 5,000 units EVERY 12 HOURS SUBQ 08/11/17 09:00 09/10/17 08:59 08/12/17 08:14 Morphine Sulfate (Morphine Sulfate) 2 mg Q4H PRN IVP Severe Pain (Pain Scale 7-10) 08/11/17 00:15 08/18/17 00:14 Ondansetron HCl (Zofran) 4 mg Q6H PRN IVP Nausea & Vomiting 08/11/17 00:15 09/10/17 00:14 Polyethylene Glycol (Miralax) 17 gm DAILYPRN PRN ORAL Constipation 08/11/17 00:15 09/10/17 00:14 Risperidone (RisperDAL) 2 mg BEDTIME ORAL 08/11/17 21:00 09/10/17 20:59 08/11/17 22:08 Trazodone HCl (Desyrel) 50 mg BEDTIME PRN ORAL INSOMNIA 08/11/17 00:15 09/10/17 00:14 Avis Holguin M.D. Aug 12, 2017 11:04
--- NOTE | 2017-08-12 12:57 | Pulmonology Progress Note ---
Assessment/Plan Problems: (1) Acute encephalopathy (2) Seizure disorder (3) Leukocytosis (4) Psychosis (5) Depression Assessment/Plan improving continue abx respiratory treatment med/surg repeat cxr. Subjective ROS Limited/Unobtainable: No Interval Events: some dry cough, improivng Allergies: Coded Allergies: No Known Allergies (Unverified , 12/28/14) Objective Last 24 Hour Vital Signs Date Time Temp Pulse Resp B/P (MAP) Pulse Ox O2 Delivery O2 Flow Rate FiO2 08/12/17 11:56 98.1 67 18 126/77 95 08/12/17 08:46 97.9 88 18 134/96 94 08/12/17 08:00 84 08/12/17 04:00 97.5 74 20 114/72 94 Room Air 08/12/17 04:00 68 08/12/17 00:00 97.9 65 20 117/71 93 Room Air 08/12/17 00:00 61 08/11/17 20:00 98.1 83 20 130/78 94 Room Air 08/11/17 20:00 68 08/11/17 16:00 68 08/11/17 15:44 98.3 72 20 130/79 96 Intake and Output 08/12/17 08/13/17 19:00 07:00 Intake Total 120 ml Balance 120 ml Intake Oral 120 ml # Voids 1 General Appearance: WD/WN HEENT: normocephalic, atraumatic Respiratory/Chest: chest wall non-tender, lungs clear Cardiovascular: normal peripheral pulses, normal rate Abdomen: normal bowel sounds, soft, non tender Genitourinary: normal external genitalia Extremities: no cyanosis Skin: no rash Neurologic/Psychiatric: high scaler II-XII grossly normal Lymphatic: no neck adenopathy Musculoskeletal: normal muscle bulk Microbiology Date/Time Source Procedure Growth Status 08/10/17 23:45 Blood Blood Culture - Preliminary NO GROWTH AFTER 24 HOURS Resulted 08/10/17 23:30 Blood Blood Culture - Preliminary NO GROWTH AFTER 24 HOURS Resulted 08/10/17 23:30 Rectum VRE Culture - Final NO VANCOMYCIN RESISTANT ENTEROCOCCUS ... Complete Laboratory Tests 08/11/17 16:55: Urine Color Pale yellow, Urine Appearance Clear, Urine pH 6, Urine Specific [place] 1.010, Urine Protein Negative, Urine Glucose (UA) Negative, Urine Ketones Negative, Urine Occult Blood 2+H, Urine Nitrite Negative, Urine Bilirubin Negative, Urine Urobilinogen Normal, Urine Leukocyte Esterase Negative , Urine RBC 0-2H, Urine WBC 0-2, Urine Squamous Epithelial Cells None, Urine Bacteria None 08/12/17 07:30: White Blood Count 9.3, Red Blood Count 5.45, Hemoglobin 16.1, Hematocrit 50.5, Mean Corpuscular Volume 93, Mean Corpuscular Hemoglobin 29.4, Mean Corpuscular Hemoglobin Concent 31.8L, Red Cell Distribution Width 12.1, Platelet Count 208, Mean Platelet Volume 6.7, Neutrophils (%) (Auto) 67.2, Lymphocytes (%) (Auto) 24.6, Monocytes (%) (Auto) 6.0, Eosinophils (%) (Auto) 1.3, Basophils (%) (Auto ) 0.8, Sodium Level 139, Potassium Level 3.6, Chloride Level 105, Carbon Dioxide Level 23, Anion Gap 11, Blood Urea Nitrogen 11, Creatinine 1.0, Estimat Glomerular Filtration Rate > 60, Glucose Level 124H, Calcium Level 9.4, Phosphorus Level 2.7, Albumin 3.6, Rapid Plasma Reagin [Pending], HIV (1&2) Antibody Rapid Negative Current Medications Medications (Trade) Dose Ordered Sig/Otilio Route PRN Reason Start Time Stop Time Status Last Admin Dose Admin Acetaminophen (Tylenol) 650 mg Q4H PRN ORAL FEVER 08/11/17 00:15 09/10/17 00:14 Albuterol/ Ipratropium (Albuterol/ Ipratropium) 3 ml Q4H PRN HHN Shortness of Breath 08/11/17 00:15 08/16/17 00:14 08/11/17 07:11 Dextrose (Dextrose 50%) STAT PRN IV Hypoglycemia 08/11/17 00:15 09/10/17 00:14 Heparin Sodium (Porcine) (Heparin 5000 units/ml) 5,000 units EVERY 12 HOURS SUBQ 08/11/17 09:00 09/10/17 08:59 08/12/17 08:14 Morphine Sulfate (Morphine Sulfate) 2 mg Q4H PRN IVP Severe Pain (Pain Scale 7-10) 08/11/17 00:15 08/18/17 00:14 Ondansetron HCl (Zofran) 4 mg Q6H PRN IVP Nausea & Vomiting 08/11/17 00:15 09/10/17 00:14 Polyethylene Glycol (Miralax) 17 gm DAILYPRN PRN ORAL Constipation 08/11/17 00:15 09/10/17 00:14 Risperidone (RisperDAL) 2 mg BEDTIME ORAL 08/11/17 21:00 09/10/17 20:59 08/11/17 22:08 Trazodone HCl (Desyrel) 50 mg BEDTIME PRN ORAL INSOMNIA 08/11/17 00:15 09/10/17 00:14 CARRIE KAN Aug 12, 2017 12:57
[2017-08-12] MEDS ORDERED: Miralax 17gm pkt ORAL PRN (15:30)
[2017-08-12] MEDS ORDERED: Albuterol/Ipratropium 3ml neb HHN PRN (15:30)
[2017-08-12] MEDS ORDERED: Morphine Sulfate 4mg/ml Inj IVP PRN (15:30)
--- NOTE | 2017-08-12 17:03 | Diagnostic Imaging Report ---
Indication: DYSPNEA Technique: One view of the chest Comparison: 08/10/2017 Findings: There is again demonstrated hyperinflation of the bilateral upper lobes. Crowding of the lower lobe bronchovascular markings is again noted. No acute infiltrates. No effusions. Heart size is normal. No significant interim change Impression: COPD changes. No definite acute process
[2017-08-12] MEDS ORDERED: TraZODone 50mg tab ORAL PRN (21:00)
[2017-08-13] VITALS: BP 110/71
[2017-08-13 04:00] VITALS: BP 120/75
[2017-08-13] MEDS: Heparin 5000 units/ml inj SUBQ SCH (09:00)
--- NOTE | 2017-08-13 10:28 | Diagnostic Imaging Report ---
Clinical Indication: Dry cough Technique: IV administration nonionic contrast. Spiral acquisition obtained through the chest. Multiplanar reconstructions generated. Total dose length product 797 mGycm. CTDIvol(s) 8, 8, 24, 19 mGy. Dose reduction achieved using automated exposure control Comparison: None. Reference made to chest radiograph 08/12/2017 Findings: There is bilateral fairly symmetric hyperinflation predominantly of the upper lobes. Linear areas of scarring are seen in the inferior right upper lobe, right middle lobe, and right lower lobe, as well as some scarring in the inferior lingula. A focus of atelectasis or scarring is seen in the posterior inferior left lower lobe. No infiltrates, effusions, masses, or nodules demonstrated. Heart size is normal. There is evidence of left ventricular muscular hypertrophy, however. Normal caliber aorta and pulmonary arteries. No pericardial effusion. No mediastinal or hilar mass or adenopathy. Mediastinal nodes measure up to 12 mm long axis dimension. There is a somewhat prominent left high paratracheal node which measures up to 15 mm long axis dimension. The included thyroid is unremarkable. No axillary or chest wall mass or adenopathy. The included upper abdominal anatomy is unremarkable. Impression: Hyperinflation, most of the upper lobes, compatible with COPD Nonspecific bilateral, right greater than left, mostly lower lung scarring, as described No acute pulmonary process Possible left ventricular muscular hypertrophy The CT scanner at [facility] is accredited by the [employer] and the scans are performed using protocols designed to limit radiation exposure to as low as reasonably achievable to attain images of sufficient resolution adequate for diagnostic evaluation.
--- NOTE | 2017-08-13 11:43 | Infectious Diseases Prog Note ---
Assessment/Plan Assessment/Plan Abx: IV Vanco 08/11 Cefepime 08/11 Levaquin x1 08/11 Assesment: Seziure activity- ?etiology- afebrile, mental status back to normal, no SIMMS- low suspicion for an underlying infectious process -head CT :no acute findings -Rapid HIV screen neg, RPR neg Leukocytosis, mild- suspect reactive;now resolved. No signs or symptoms of infection -afebrile -CXR There is again demonstrated hyperinflation of the bilateral upper lobes.Crowding of the lower lobe bronchovascular markings is again noted. No acute infiltrates. No effusions. -Bcx NTD Cough- likely due to COPD -CT chest: Hyperinflation, most of the upper lobes, compatible with COPD. Nonspecific bilateral, right greater than left, mostly lower lung scarring, as described. No acute pulmonary process.Possible left ventricular muscular hypertrophy emphysema ?hx of prior TB (per chart, patient denies) psychiatric disorder [facility] resident Plan: -Continue to monitor off abx -08/11 SP IV Vanco, Cefepime, levaquin #1 -Neuro f/u -f/u cx -Monitor CBC/BMP ,temperatures Thank you for this consultation. Will continue to follow along with you. Discussed with RN. Subjective Allergies: Coded Allergies: No Known Allergies (Unverified , 12/28/14) Subjective afebrile leukocytosis resolved BCx NTD CT with no pna Objective Vital Signs Last 24 Hour Vital Signs Date Time Temp Pulse Resp B/P (MAP) Pulse Ox O2 Delivery O2 Flow Rate FiO2 08/13/17 08:00 71 18 Room Air 21 08/13/17 04:00 97.9 80 18 120/75 98 08/13/17 00:00 97.9 64 21 110/71 93 08/13/17 00:00 Room Air 08/12/17 21:00 98.4 63 21 118/71 94 08/12/17 20:00 Room Air 08/12/17 20:00 98.4 63 21 118/71 94 08/12/17 19:30 62 18 Room Air 21 08/12/17 16:15 97.4 59 21 135/79 97 Room Air 08/12/17 15:00 98.1 82 18 139/82 95 Room Air 08/12/17 12:00 73 08/12/17 11:56 98.1 67 18 126/77 95 Height (Feet): 5 Height (Inches): 10.00 Weight (Pounds): 169 Objective General Appearance: mild distress - appear short of breath HEENT: normocephalic, atraumatic, bilateral eye PERRL, bilateral eye EOMI Neck: full range of motion, supple, no meningismus, no bony tend Respiratory: no respiratory distress, no retraction, no accessory muscle use, crackles - bilaterally Cardiovascular : normal peripheral pulses, regular rate, rhythm, no edema, no gallop, no JVD, no murmur Gastrointestinal: normal bowel sounds, non tender, soft, no mass, no organomegaly, non-distended, no guarding, no hernia, no pulsatile mass, no rebound Genitourinary: no CVA tenderness Musculoskeletal: normal inspection 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 Complete 08/10/17 23:30 Rectum VRE Culture - Final NO VANCOMYCIN RESISTANT ENTEROCOCCUS ... Complete Current Medications Medications (Trade) Dose Ordered Sig/Otilio Route PRN Reason Start Time Stop Time Status Last Admin Dose Admin Acetaminophen (Tylenol) 650 mg Q4H PRN ORAL FEVER 08/12/17 15:30 09/10/17 15:29 Albuterol/ Ipratropium (Albuterol/ Ipratropium) 3 ml Q4H PRN HHN Shortness of Breath 08/12/17 15:30 08/16/17 15:29 Dextrose (Dextrose 50%) STAT PRN IV Hypoglycemia 08/12/17 15:30 09/11/17 15:29 Heparin Sodium (Porcine) (Heparin 5000 units/ml) 5,000 units EVERY 12 HOURS SUBQ 08/12/17 21:00 09/10/17 08:59 08/12/17 21:55 Morphine Sulfate (Morphine Sulfate) 2 mg Q4H PRN IVP Severe Pain (Pain Scale 7-10) 08/12/17 15:30 08/18/17 15:29 Ondansetron HCl (Zofran) 4 mg Q6H PRN IVP Nausea & Vomiting 08/12/17 15:30 09/10/17 15:29 Polyethylene Glycol (Miralax) 17 gm DAILYPRN PRN ORAL Constipation 08/12/17 15:30 09/11/17 15:29 Risperidone (RisperDAL) 2 mg BEDTIME ORAL 08/12/17 21:00 09/10/17 20:59 08/12/17 21:52 Trazodone HCl (Desyrel) 50 mg HSPRN PRN ORAL INSOMNIA 08/12/17 21:00 09/11/17 20:59 Avis Holguin M.D. Aug 13, 2017 11:42
[2017-08-13 11:45] VITALS: BP 124/87
--- NOTE | 2017-08-13 15:27 | Pulmonology Progress Note ---
Assessment/Plan Problems: (1) Acute encephalopathy (2) Seizure disorder (3) Leukocytosis (4) Psychosis (5) Depression Assessment/Plan improving off abx respiratory treatment med/surg dc home today/ assisted living Subjective ROS Limited/Unobtainable: No Constitutional: Reports: no symptoms HEENT: Repors: no symptoms Respiratory: Reports: no symptoms Allergies: Coded Allergies: No Known Allergies (Unverified , 12/28/14) Objective Last 24 Hour Vital Signs Date Time Temp Pulse Resp B/P (MAP) Pulse Ox O2 Delivery O2 Flow Rate FiO2 08/13/17 11:45 98.1 82 16 124/87 93 Room Air 08/13/17 08:00 71 18 Room Air 21 08/13/17 04:00 97.9 80 18 120/75 98 08/13/17 00:00 97.9 64 21 110/71 93 08/13/17 00:00 Room Air 08/12/17 21:00 98.4 63 21 118/71 94 08/12/17 20:00 Room Air 08/12/17 20:00 98.4 63 21 118/71 94 08/12/17 19:30 62 18 Room Air 21 08/12/17 16:15 97.4 59 21 135/79 97 Room Air HEENT: normocephalic, anicteric Respiratory/Chest: chest wall non-tender, lungs clear Cardiovascular: normal peripheral pulses, normal rate Abdomen: normal bowel sounds Genitourinary: normal external genitalia Extremities: no cyanosis Skin: no lesions 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 Complete 08/10/17 23:30 Rectum VRE Culture - Final NO VANCOMYCIN RESISTANT ENTEROCOCCUS ... Complete Current Medications Medications (Trade) Dose Ordered Sig/Otilio Route PRN Reason Start Time Stop Time Status Last Admin Dose Admin Acetaminophen (Tylenol) 650 mg Q4H PRN ORAL FEVER 08/12/17 15:30 09/10/17 15:29 Albuterol/ Ipratropium (Albuterol/ Ipratropium) 3 ml Q4H PRN HHN Shortness of Breath 08/12/17 15:30 08/16/17 15:29 Dextrose (Dextrose 50%) STAT PRN IV Hypoglycemia 08/12/17 15:30 09/11/17 15:29 Heparin Sodium (Porcine) (Heparin 5000 units/ml) 5,000 units EVERY 12 HOURS SUBQ 08/12/17 21:00 09/10/17 08:59 08/12/17 21:55 Morphine Sulfate (Morphine Sulfate) 2 mg Q4H PRN IVP Severe Pain (Pain Scale 7-10) 08/12/17 15:30 08/18/17 15:29 Nicotine (Nicoderm) 1 patch Q24H TDERMAL 08/13/17 14:30 09/12/17 14:29 08/13/17 14:07 Ondansetron HCl (Zofran) 4 mg Q6H PRN IVP Nausea & Vomiting 08/12/17 15:30 09/10/17 15:29 Polyethylene Glycol (Miralax) 17 gm DAILYPRN PRN ORAL Constipation 08/12/17 15:30 09/11/17 15:29 Risperidone (RisperDAL) 2 mg BEDTIME ORAL 08/12/17 21:00 09/10/17 20:59 08/12/17 21:52 Trazodone HCl (Desyrel) 50 mg HSPRN PRN ORAL INSOMNIA 08/12/17 21:00 09/11/17 20:59 CARRIE KAN Aug 13, 2017 15:27
[2017-08-13 16:18] VITALS: BP 136/98
--- NOTE | 2017-08-13 16:56 | Cardiology Report ---
APPROVED REPORT EXAM: Two-dimensional and M-mode echocardiogram with Doppler and color Doppler. INDICATION Ejection fraction M-Mode DIMENSIONS IVSd0.9 (0.7-1.1cm) LVDd4.8 (3.5-5.6cm) PWd1.3 (0.7-1.1cm) IVSs1.1 cm LVDs3.7 (2.5-4.0cm) PWs1.6 cm Technically difficult study due to poor acoustical windows. Normal left ventricular chamber size, systolic function and wall motion to extent visualized. Left ventricular ejection fraction grossly estimated to be 55 %. Study quality precludes accurate assessment of regional wall motion. Borderline mild left ventricular hypertrophy by 2-D. No evidence of pericardial effusion. All other cardiac chamber sizes are within normal limits. Mild focal aortic valve sclerosis with adequate cusp excursion. Mildly thickened mitral valve leaflets with normal excursion. Mild mitral annulus and aortic root calcification. Normal tricuspid valve structure. IVC at normal size and collapsing with respiration. A color flow and spectral Doppler study was performed and revealed: No aortic insufficiency. Trace mitral regurgitation. Mitral diastolic velocities suggest reduced left ventricular relaxation c/w mild LV diastolic dysfunction (Grade I ).. Trace tricuspid regurgitation. Tricuspid systolic velocities suggests peak right ventricular systolic pressure of 9 mmHg.
--- NOTE | 2017-08-13 18:30 | Electroencephalogram ---
DATE OF PROCEDURE: 08/11/2017 ELECTROENCEPHALOGRAPHY REPORT REQUESTING PHYSICIAN: Federico Zamorano M.D. HISTORY: This is a 52 years old man seen in neurological consultation to evaluate recently noted paroxysmal activity. Current treatment include vancomycin and Risperdal. EEG was done using 18 electrodes placed on [id number], dqjvl-[id number] montages according to 10/20 International System. Most wakeful portions of recording, background activity consists of well regulated 8-9 cycles per second alpha activities with well regulated at times sinusoidal fashion, no asymmetry from yiig-eh-sely. There were no spike or wave activities. Intermittently appearing drowsiness corresponded to slight generalized slowing in the theta range. IMPRESSION: Normal awake stage 1 sleep EEG with photic stimulation. Curtis Troncoso M.D. DR: Delilah JOB#: [id number] CC:
--- NOTE | 2017-08-13 22:59 | Consultation ---
History of Present Illness General Date patient seen: Aug 11, 2017 Chief Complaint: Seizure Present Illness HPI 52 y/o M with hx of schizophrenia, emphysema, prior TB (per chart, patient denies), boarding care facility resident is brought to ED on 08/11 because of seizure activity. the pt has AH Allergies: Coded Allergies: No Known Allergies (Unverified , 12/28/14) Medication History Scheduled Atorvastatin Calcium* (Atorvastatin Calcium*), 20 MG ORAL BEDTIME, (Reported) Budesonide/Formoterol Fumarate (Symbicort 160-4.5 Mcg Inhaler), 2 PUFF IH BID, ( Reported) Bupropion Hcl* (Bupropion Hcl Sr*), 150 MG ORAL EVERY 12 HOURS, (Reported) Ivabradine HCl (Corlanor), 5 MG PO DAILY, (Reported) [place]-3 Fatty Acids (Fish Oil), 1,000 MG PO BID, (Reported) Risperidone (Risperidone), 8 MG ORAL QHS, (Reported) Risperidone (Risperidone), 4 MG ORAL BEDTIME, (Reported) Sildenafil Citrate (Viagra), 50 MG ORAL DAILY, (Reported) Tiotropium [place]* (Spiriva*), 1 PUFF INH DAILY, (Reported) Tiotropium [place]* (Spiriva*), 2 PUFF INH DAILY, (Reported) Trazodone Hcl* (Desyrel*), 100 MG ORAL BEDTIME, (Reported) [Guaifenesin], 400 MG PO THREE TIMES A DAY, (Reported) Scheduled PRN Albuterol Sulfate* (Albuterol Sulfate Hhn*), 90 MCG INH Q4H PRN for Shortness of Breath, (Reported) Nicotine Polacrilex (Nicotine Gum), 4 MG PO Q4HR PRN for Per rx protocol, ( Reported) Trazodone* (Trazodone*), 50 MG ORAL BEDTIME PRN for i, (Reported) Patient History History Provided By: Patient, Medical Record, PMD Healthcare decision maker Resuscitation status Full Code Advanced Directive on File Past Medical/Surgical History Past Medical/Surgical History: (1) Syncopal seizure (2) Syncope (3) Syncope (4) Depression (5) Psychosis (6) Seizure disorder (7) Leukocytosis (8) Acute encephalopathy Review of Systems Psychiatric: Reports: prior hx, anxiety, depressed feelings, emotional problems , hallucinations Physical Exam General Appearance: no apparent distress, alert Neurologic: alert, oriented x 3, responsive, depressed affect Last 24 Hour Vital Signs Date Time Temp Pulse Resp B/P (MAP) Pulse Ox O2 Delivery O2 Flow Rate FiO2 08/13/17 16:18 97.7 86 16 136/98 95 Room Air 08/13/17 11:45 98.1 82 16 124/87 93 Room Air 08/13/17 08:00 71 18 Room Air 21 08/13/17 04:00 97.9 80 18 120/75 98 08/13/17 00:00 97.9 64 21 110/71 93 08/13/17 00:00 Room Air Height (Feet): 5 Height (Inches): 10.00 Weight (Pounds): 169 Assessment/Plan Status: stable Assessment/Plan schizophrenia risperdal 2mg [facility] Ludwig Jimenez M.D. Aug 13, 2017 22:58
--- NOTE | 2017-08-13 22:59 | General Progress Note ---
Assessment/Plan Status: stable, progressing Assessment/Plan schizophrenia risperdal 2mg qhs Subjective Date patient seen: Aug 12, 2017 Neurologic/Psychiatric: Reports: anxiety, depressed, emotional problems Allergies: Coded Allergies: No Known Allergies (Unverified , 12/28/14) Objective Last 24 Hour Vital Signs Date Time Temp Pulse Resp B/P (MAP) Pulse Ox O2 Delivery O2 Flow Rate FiO2 08/13/17 16:18 97.7 86 16 136/98 95 Room Air 08/13/17 11:45 98.1 82 16 124/87 93 Room Air 08/13/17 08:00 71 18 Room Air 21 08/13/17 04:00 97.9 80 18 120/75 98 08/13/17 00:00 97.9 64 21 110/71 93 08/13/17 00:00 Room Air Height (Feet): 5 Height (Inches): 10.00 Weight (Pounds): 169 General Appearance: no apparent distress, alert Neurologic: alert, oriented x 3, responsive, depressed affect Ludwig Jimenez M.D. Aug 13, 2017 22:59
--- NOTE | 2017-08-13 23:00 | General Progress Note ---
Assessment/Plan Status: stable Assessment/Plan schizophrenia risperdal 2mg qhs Subjective Date patient seen: Aug 13, 2017 Neurologic/Psychiatric: Reports: anxiety, depressed, emotional problems Allergies: Coded Allergies: No Known Allergies (Unverified , 12/28/14) Objective Last 24 Hour Vital Signs Date Time Temp Pulse Resp B/P (MAP) Pulse Ox O2 Delivery O2 Flow Rate FiO2 08/13/17 16:18 97.7 86 16 136/98 95 Room Air 08/13/17 11:45 98.1 82 16 124/87 93 Room Air 08/13/17 08:00 71 18 Room Air 21 08/13/17 04:00 97.9 80 18 120/75 98 08/13/17 00:00 97.9 64 21 110/71 93 08/13/17 00:00 Room Air Height (Feet): 5 Height (Inches): 10.00 Weight (Pounds): 169 General Appearance: WD/WN, no apparent distress, alert Neurologic: alert, oriented x 3, responsive, depressed affect Ludwig Jimenez M.D. Aug 13, 2017 23:00
--- NOTE | 2017-08-14 11:15 | Discharge Summary ---
Discharge Summary Hospital Course Date of Admission Aug 10, 2017 at 23:26 Date of Discharge Aug 13, 2017 at 17:00 Admitting Diagnosis pneumonia, hypoxia HPI Joseluis Garcia is a 52 year old male who was admitted on Aug 10, 2017 at 23:26 for Pneumonia,Hypoxia Hospital Course [id number] Discharge Discharge Disposition Patient was discharged to board and care Discharge Diagnoses: Criss Orellana NP Aug 14, 2017 11:15
--- NOTE | 2017-08-14 23:00 | Discharge Summary 2 SIG ---
DATE OF ADMISSION: 08/10/2017 DATE OF DISCHARGE: 08/13/2017 CONSULTANTS: 1. Curtis Troncoso M.D. 2. Ludwig Jimenez M.D. 3. Avis Holguin M.D. BRIEF HOSPITAL COURSE: The patient is a 52-year-old male with history of seizure and psychiatric disorder with depression, who was brought in by paramedics for altered level of consciousness, possibly a seizure event. The patient does not remember anything and was a poor historian. He lives in a [facility] and remembers that he was getting dressed up, went to the bed to sleep, and he was taken to the hospital. He suspects that a seizure occurred while he was in bed. He denied any seizure episodes in the past and denied having any blackouts. On evaluation at ED, CAT scan of the head showed no acute intracranial hemorrhage and no skull fracture. Chest x-ray showed bilateral lower lobe increased markings concerning for infiltrate. His WBC was slightly elevated to 13.7 and the patient was desaturating to 91% on regular basis and required oxygenation. He was then admitted to telemetry for acute encephalopathy and possible seizure disorder. He had leukocytosis. The patient was initially placed on IV vancomycin and cefepime. However, there is low suspicion for underlying infectious process. Antibiotics were discontinued and was monitored off antibiotic treatment. He has a prior history of tuberculosis (per chart, however, the patient denies). HIV screen was negative. Syphilis was nonreactive. Urine toxicology done was likewise negative. He was diagnosed to have schizophrenia and was given Risperdal 2 mg at bedtime. He had an EEG done that showed normal awake stage 1 sleep EEG with photic stimulation. He remained afebrile and mental status went back to normal. Leukocytosis was suspected to be reactive as there was no sign or symptom of infection and leukocytosis eventually resolved. Blood culture did not isolate any growth. VRE and MRSA screens were negative. He had chest CT that showed hyperinflation in most of the upper lobes, compatible with chronic obstructive pulmonary disease, nonspecific bilateral right greater than left, mostly lower lung scarring as described. No acute pulmonary process. Possible left ventricular muscle hypertrophy. He was continued on respiratory treatment and he has been saturating well on room air. He was eventually discharged back to [facility]. FINAL DIAGNOSES: 1. Acute encephalopathy. 2. Single seizure episode probably asymptomatic due to underlying infection. 3. Pneumonia. 4. Schizophrenia. 5. Depression. 6. Leukocytosis, probably reactive. 7. Cough, likely due to chronic obstructive pulmonary disease. DISCHARGE DISPOSITION: The patient was discharged back to board and care. DISCHARGE MEDICATIONS: Refer to medication list. FOLLOWUP: Follow up with PMD in a week. Federico Zamorano M.D. I have been assigned to dictate discharge summary on this account and I was not involved in the patient's management. Criss Orellana N.P. DR: AARTI JOB#: [id number] CC: MAKENZIE
== END 2017-08-13 17:00 | disposition home or self-care (01) | DRG 193 ==
LOC: EDBD 22:19 → EMR 22:23 → 2E 23:26 → EDBEDREQ 08-11 02:07 → 4E 08-12 14:54
DX: J18.9 Pneumonia, unspecified organism (principal); G93.40 Encephalopathy, unspecified; R56.9 Unspecified convulsions; J44.9 Chronic obstructive pulmonary disease, unspecified; F20.9 Schizophrenia, unspecified; R09.02 Hypoxemia; F32.9 Major depressive disorder, single episode, unspecified
CPT/HCPCS: 36415; 70450; 71010; 71260; 80048; 80069; 80307; 81001; 82550; 82553; 83605; 83690; 83880; 84484; 85025; 86592; 86703; 87040; 87081; 93005; 93306; 94640; 94664; 95819; 99285; J7620; J8499

== ENCOUNTER 2018-04-25 14:05 | Emergency (ER) | payer MEDICARE, MEDICAID ==
[~2018-04-25] VITALS: Ht 182.9 cm; Wt 102.1 kg
[~2018-04-25 14:05] MED LIST changes: +BUPROPION HCL150 M3 ORAL; +CORLANOR5 MG PO; +GUAIFENESIN PO; +TRAZODONE HCL100 MG ORAL; +VIAGRA50 MG ORAL
[2018-04-25 14:10] VITALS: BP 94/76
[2018-04-25] MEDS ORDERED: Albuterol/Ipratropium 3ml neb HHN ONE ×2 (14:15→15:00)
--- NOTE | 2018-04-25 14:15 | Emergency Room Report ---
History of Present Illness General Chief Complaint: Seizure Source: Patient, EMS Present Illness HPI Patient is a 52-year-old male brought in by EMS after reported seizure. Patient is a resident at a [facility]. The patient noted have prior history of paranoid schizophrenia. Patient had reportedly had seizures in the past per patient was noted to have a brief seizure. This resolve spontaneously. Allergies: Coded Allergies: No Known Allergies (Unverified , 12/28/14) Patient History Past Medical History: see triage record Reviewed Nursing Documentation: PMH: Agreed; PSxH: Agreed Nursing Documentation-PMH Past Medical History: No History, Except For Hx Cardiac Problems: Yes - CHOLESTEROL Hx COPD: Yes - EMPHYSEMA,HX OF TB Hx Gastrointestinal Problems: No Hx Neurological Problems: Yes - syncope Hx Seizures: Yes Review of Systems All Other Systems: negative except mentioned in HPI Physical Exam Vital Signs Date Time Temp Pulse Resp B/P (MAP) Pulse Ox O2 Delivery O2 Flow Rate FiO2 04/25/18 13:56 99.1 132 24 104/72 92 Room Air 99.1 Sp02 EP Interpretation: reviewed, normal General Appearance: normal inspection, well appearing, no apparent distress, alert, GCS 15 Head: atraumatic ENT: normal ENT inspection, hearing grossly normal, normal voice Neck: normal inspection, full range of motion, supple, no bony tend Respiratory: normal inspection, lungs clear, normal breath sounds, no respiratory distress, no retraction, no wheezing Cardiovascular #1: regular rate, rhythm, no edema Gastrointestinal: normal inspection, normal bowel sounds, non tender, soft, no guarding, no hernia Genitourinary: no CVA tenderness Musculoskeletal: normal inspection, back normal, normal range of motion Neurologic: normal inspection, alert, oriented x3, responsive, lacrosse player III-XII nml as tested, speech normal Psychiatric: normal inspection, judgement/insight normal, mood/affect normal Skin: normal inspection, normal color, no rash Medical Decision Making Diagnostic Impression: Primary Impression: Epileptic seizure, generalized Additional Impression: COPD (chronic obstructive pulmonary disease) ER Course Patient presented for seizure.Differential diagnosis included CVA, alcohol withdrawal, encephalitis, cysticercosis, electrolyte abnormality, mass lesion, or cranial hemorrhage.Because of complexity of patient's case laboratory testing and imaging studies were ordered.The patient was given breathing treatments with some improvement of symptoms. Chest clear one view interpreted by me showed bibasilar atelectasis without evident infiltrate. Patient was given IV Keppra as well as some phenobarbital due to prior history of seizures. Laboratory testing was notable for subtherapeutic phenobarbital level. The patient was discharged back to the [facility] via [facility] ambulance. At the time of discharge patient was awake alert and oriented. Labs Test 04/25/18 14:06 White Blood Count 11.5 K/UL (4.8-10.8) Red Blood Count 4.58 M/UL (4.70-6.10) Hemoglobin 14.2 G/DL (14.2-18.0) Hematocrit 40.7 % (42.0-52.0) Mean Corpuscular Volume 89 FL (80-99) Mean Corpuscular Hemoglobin 31.1 PG (27.0-31.0) Mean Corpuscular Hemoglobin Concent 35.0 G/DL (32.0-36.0) Red Cell Distribution Width 11.9 % (11.6-14.8) Platelet Count 357 K/UL (150-450) Mean Platelet Volume 7.0 FL (6.5-10.1) Neutrophils (%) (Auto) 57.5 % (45.0-75.0) Lymphocytes (%) (Auto) 34.0 % (20.0-45.0) Monocytes (%) (Auto) 5.7 % (1.0-10.0) Eosinophils (%) (Auto) 1.9 % (0.0-3.0) Basophils (%) (Auto) 0.9 % (0.0-2.0) Urine Color Pale yellow Urine Appearance Clear Urine pH 5 (4.5-8.0) Urine Specific [place] 1.015 (1.005-1.035) Urine Protein 2+ (NEGATIVE) Urine Glucose (UA) Negative (NEGATIVE) Urine Ketones Negative (NEGATIVE) Urine Occult Blood 2+ (NEGATIVE) Urine Nitrite Negative (NEGATIVE) Urine Bilirubin Negative (NEGATIVE) Urine Urobilinogen Normal MG/DL (0.0-1.0) Urine Leukocyte Esterase Negative (NEGATIVE) Urine RBC 2-4 /HPF (0 - 0) Urine WBC 0 /HPF (0 - 0) Urine Squamous Epithelial Cells Occasional /LPF Urine Bacteria Occasional /HPF (NONE) Sodium Level 137 MMOL/L (136-145) Potassium Level 4.2 MMOL/L (3.5-5.1) Chloride Level 100 MMOL/L (98-107) Carbon Dioxide Level 17 MMOL/L (21-32) Anion Gap 20 mmol/L (5-15) Blood Urea Nitrogen 16 mg/dL (7-18) Creatinine 1.3 MG/DL (0.55-1.30) Estimat Glomerular Filtration Rate 57.5 mL/min (>60) Glucose Level 115 MG/DL (74-106) Calcium Level 9.3 MG/DL (8.5-10.1) Total Bilirubin 0.3 MG/DL (0.2-1.0) Aspartate Amino Transf (AST/SGOT) 9 U/L (15-37) Alanine Aminotransferase (ALT/SGPT) 18 U/L (12-78) Alkaline Phosphatase 77 U/L (46-116) Troponin I 0.017 ng/mL (0.000-0.056) Total Protein 8.0 G/DL (6.4-8.2) Albumin 3.8 G/DL (3.4-5.0) Globulin 4.2 g/dL Albumin/Globulin Ratio 0.9 (1.0-2.7) Urine Opiates Screen Negative (NEGATIVE) Urine Barbiturates Screen Negative (NEGATIVE) Valproic Acid (Depakene) Level < 3 MCG/ML (50-100) Phencyclidine (PCP) Screen Negative (NEGATIVE) Urine Amphetamines Screen Negative (NEGATIVE) Phenobarbital Level 2.4 ug/mL (15-40) Urine Benzodiazepines Screen Negative (NEGATIVE) Urine Cocaine Screen Negative (NEGATIVE) Urine Marijuana (THC) Screen Negative (NEGATIVE) EKG Diagnostic Results Rate: tachycardiac - 116 Rhythm: NSR ST Segments: no acute changes Rhythm Strip Diag. Results EP Interpretation: yes Rhythm: NSR - 115, no PVC's, no ectopy Last Vital Signs Date Time Temp Pulse Resp B/P (MAP) Pulse Ox O2 Delivery O2 Flow Rate FiO2 04/25/18 13:56 99.1 132 24 104/72 92 Room Air 99.1 Status: improved Disposition: HOME, SELF-CARE Condition: Stable Scripts Levetiracetam (KEPPRA) 500 Mg Tablet 500 MG ORAL EVERY 12 HOURS, #20 TAB 0 Refills Prov: Arden Sahu MD 04/25/18 Guaifenesin* (ADULT WAL-TUSSIN*) 100 Mg/5 Ml Liquid 10 ML ORAL Q4H, #120 ML Prov: Arden Sahu MD 04/25/18 Arden Sahu MD Apr 25, 2018 14:15
[2018-04-25 14:20] LABS: APPEARANCE,URINE CLEAR; BILIRUBIN, URINE NEGATIVE (NEGATIVE); COLOR,URINE PALE YELLOW; GLUCOSE, URINE (UA) NEGATIVE (NEGATIVE); KETONES,URINE NEGATIVE (NEGATIVE); LEUKOCYTE ESTERASE ,URINE NEGATIVE (NEGATIVE); NITRITE,URINE NEGATIVE (NEGATIVE); PH,URINE 5 (4.5-8.0); PROTEIN,URINE 2+ (NEGATIVE); UROBILINOGEN,URINE NORMAL MG/DL (0.0-1.0)
[2018-04-25 14:21] LABS: BASOPHILS % (AUTO) 0.9 % (0.0-2.0); EOSINOPHILS % (AUTO) 1.9 % (0.0-3.0); HEMATOCRIT 40.7 % (42.0-52.0); HEMOGLOBIN 14.2 G/DL (14.2-18.0); MEAN CORPUSCULAR VOLUME 89 FL (80-99); MONOCYTES % (AUTO) 5.7 % (1.0-10.0); NEUTROPHILS % (AUTO) 57.5 % (45.0-75.0); PLATELET COUNT 357 K/UL (150-450); RED BLOOD COUNT 4.58 M/UL (4.70-6.10); RED CELL DISTRIBUTION WIDTH 11.9 % (11.6-14.8); WHITE BLOOD COUNT 11.5 K/UL (4.8-10.8)
[2018-04-25 14:27] LABS: ANION GAP 20 mmol/L (5-15); BLOOD UREA NITROGEN 16 mg/dL (7-18); CALCIUM 9.3 MG/DL (8.5-10.1); CARBON DIOXIDE 17 MMOL/L (21-32); CHLORIDE 100 MMOL/L (98-107); CREATININE 1.3 MG/DL (0.55-1.30); POTASSIUM 4.2 MMOL/L (3.5-5.1); SODIUM 137 MMOL/L (136-145)
[2018-04-25] MEDS ORDERED: levETIRAcetam 500mg/NS100ml 100 ML IVPB ONE (14:30)
[2018-04-25 14:31] LABS: ALANINE AMINOTRANSFERASE 18 U/L (12-78); ALBUMIN 3.8 G/DL (3.4-5.0); ALBUMIN/GLOBULIN RATIO 0.9 (1.0-2.7); ALKALINE PHOSPHATASE 77 U/L (46-116); ASPARTATE AMINO TRANSFERASE 9 U/L (15-37); BILIRUBIN,TOTAL 0.3 MG/DL (0.2-1.0)
[2018-04-25 14:40] VITALS: BP 105/57
[2018-04-25] MEDS ORDERED: Albuterol ud Inhalation HHN ONE ×2 (14:45→15:00)
[2018-04-25 15:41] VITALS: BP 130/68
[2018-04-25 16:32] VITALS: BP 122/69
[2018-04-25] MEDS ORDERED: KEPPRA500 M4 ORAL (16:54)
[2018-04-25] MEDS ORDERED: ADULT WAL-100 MG/5 M ORAL (16:54)
[2018-04-25 17:26] VITALS: BP 110/63
[2018-04-25 17:30] VITALS: BP 110/63
--- NOTE | 2018-04-26 08:47 | Diagnostic Imaging Report ---
Indication: Chest pain Technique: One view of the chest Comparison: 08/12/2017 Findings: Scarring or atelectasis is seen and right perihilar region. There is hyperinflation of the upper lungs. No definite infiltrates. No effusions. Heart size is normal. No definite congestion Impression: Right perihilar atelectasis or scarring. No acute process otherwise Upper lobe hyperinflation, consistent with COPD, also previously described
--- NOTE | 2018-05-03 18:51 | Cardiology Report ---
APPROVED REPORT EKG Measurement Heart [id number] Sinus tachycardia with premature supraventricular complexes Left anterior fascicular block Possible Inferior infarct, age undetermined Possible Anterior infarct, age undetermined Abnormal ECG
== END 2018-04-25 17:30 | disposition home or self-care (01) ==
LOC: EDBD 14:05 → EMR 14:32
DX: G40.909 Epilepsy, unspecified, not intractable, without status epilepticus (principal); F17.200 Nicotine dependence, unspecified, uncomplicated; J43.9 Emphysema, unspecified; F20.0 Paranoid schizophrenia; E78.00 Pure hypercholesterolemia, unspecified; Z86.11 Personal history of tuberculosis
CPT/HCPCS: 36415; 71045; 80053; 80164; 80184; 80307; 81003; 84484; 85025; 87040; 87181; 93005; 94640; 94664; 96361; 96374; 96375; 99285; J1953; J2560; J7620